=== PATIENT | female | born 1990 | race Caucasian/White ===

== ENCOUNTER 2018-08-17 13:59 | Inpatient (IN) | payer SELFPAY ==
[~2018-08-17] VITALS: Ht 160 cm; Wt 69.0 kg
[2018-08-17] MEDS ORDERED: MECLIZINE CHEWABLE 25 MG TAB ONE (14:20)
[2018-08-17] MEDS ORDERED: MECLIZINE CHEWABLE 25 MG TAB PO ONE (14:30)
[2018-08-17 14:51] LABS: BASOPHILS # (AUTO) 0.02 x10^3/uL (0-0.1); BASOPHILS % (AUTO) 0 % (0-1); EOSINOPHILS # (AUTO) 0.09 x10^3/uL (0-0.4); EOSINOPHILS % (AUTO) 1 % (1-7); LYMPHOCYTES # (AUTO) 1.82 x10^3/uL (1-3.4); LYMPHOCYTES % (AUTO) 15 % (22-44); MD NO; MEAN CORPUSCULAR HEMOGLOBIN 31.4 pg (27.0-34.8); MEAN CORPUSCULAR HGB CONC 32.7 g/dL (32.4-35.8); MEAN CORPUSCULAR VOLUME 95.8 fL (80-100); MEAN PLATELET VOLUME 8.1 fL (7.4-10.4); MONOCYTES # (AUTO) 0.49 x10^3/uL (0.2-0.8); MONOCYTES % (AUTO) 4 % (2-9); NEUTROPHILS # (AUTO) 9.93 x10^3/uL (1.8-6.8); NEUTROPHILS % (AUTO) 80 % (42-75); PLATELET COUNT 279 x10^3/uL (130-400); RED BLOOD COUNT 4.61 x10^6/uL (3.82-5.3)
[2018-08-17 14:58] LABS: ALBUMIN 3.9 g/dL (3.4-5.0); ANION GAP 6 mmol/L (5-15); CALCIUM 8.1 mg/dL (8.5-10.1); CHLORIDE 109 mmol/L (98-107); CREATININE 0.69 mg/dL (0.55-1.02)
[2018-08-17] MEDS ORDERED: ONDANSETRON 2MG/ML, 2ML IVPush ONE (15:30)
[2018-08-17] MEDS ORDERED: ONDANSETRON 2MG/ML, 2ML ONE (15:43)
--- NOTE | 2018-08-17 15:51 | NUR ---
[facility] [phone] Donny Felton
[2018-08-17] MEDS ORDERED: SODIUM CHLORIDE 0.9% 1,000ML IVBOLUS ONE (16:00)
[2018-08-17] MEDS ORDERED: PROMETHAZINE 25 MG/ML, 1ML ONE (16:20)
[2018-08-17] MEDS ORDERED: PROMETHAZINE 25 MG/ML, 1ML IM ONE (16:30)
--- NOTE | 2018-08-17 16:47 | NUR ---
PER FRIENDS PT WAS OUT DRINKING WITH THEM TILL LATE. FRIENDS STATE THEY ALL DRANK QUITE A BIT.
--- NOTE | 2018-08-17 16:48 | NUR ---
MD IN ROOM. PT REFUSING TO ANSWER MD QUESTIONS. PT STATES SHE WANTS TO STAY IN THE HOSPITAL. WILL NOT PROVIDE FURTHER DETAILS ON HOW SHE IS FEELING OR WHAT IS GOING ON WITH HER.
[2018-08-17 16:50] LABS: HCG UR SG 1.015 (1.003-1.030); MICROSCOPIC NOT IND
--- NOTE | 2018-08-17 16:54 | NUR ---
PT IS RESTING IN BED AT THIS TIME. RESPS EVEN AND UNLABORED, O2 AND NIBP MONITORING IN PLACE.
[2018-08-17 16:59] LABS: CULTURE INDICATED? NO
[2018-08-17] MEDS ORDERED: SODIUM CHLORIDE FLUSH 10ML SYR IVF ONE (17:00)
[2018-08-17] MEDS ORDERED: LABETALOL 5MG/ML, 20ML IVPush PRN (17:30)
[2018-08-17] MEDS ORDERED: ONDANSETRON 2MG/ML, 2ML IVPush PRN (17:30)
[2018-08-17] MEDS ORDERED: PROMETHAZINE 25 MG/ML, 1ML IM PRN (17:30)
[2018-08-17] MEDS ORDERED: ACETAMINOPHEN 325 MG TABLET PO PRN (17:30)
[2018-08-17] MEDS ORDERED: ENOXAPARIN 40 MG/0.4 ML SQ SCH (17:30)
[2018-08-17 17:56] LABS: THYROID STIMULATING HORMONE 0.903 mIU/L (0.358-3.740)
--- NOTE | 2018-08-17 18:08 | NUR ---
pt resting comfortably at this time.
--- NOTE | 2018-08-17 18:37 | NUR ---
PT UP TO RESTROOM. AMBULATES WITH STANDBY ASSIST.
[2018-08-17 19:47] LABS: BARBITURATE SCREEN, URINE Negative (Negative)
[2018-08-17 19:48] LABS: AMPHETAMINE SCREEN, URINE Negative (Negative); BENZODIAZEPINE SCREEN, URINE Negative (Negative); CANNABINOID SCREEN, URINE Negative (Negative); COCAINE SCREEN, URINE Negative (Negative); METHADONE SCREEN, URINE Negative (Negative); OPIATE SCREEN, URINE Negative (Negative)
[2018-08-17 20:01] VITALS: BP 132/88
[2018-08-17] MEDS: CALCIUM CARBONATE 500 MG TAB.CHEW PO SCH (21:00)
[2018-08-17] MEDS: SODIUM CHLORIDE 0.9% 1,000 ML IV SCH (22:42)
[2018-08-18 02:24] VITALS: BP 141/89
[2018-08-18 05:29] LABS: BASOPHILS # (AUTO) 0.05 x10^3/uL (0-0.1); BASOPHILS % (AUTO) 0 % (0-1); EOSINOPHILS # (AUTO) 0.03 x10^3/uL (0-0.4); EOSINOPHILS % (AUTO) 0 % (1-7); LYMPHOCYTES # (AUTO) 2.64 x10^3/uL (1-3.4); LYMPHOCYTES % (AUTO) 21 % (22-44); MD NO; MEAN CORPUSCULAR HEMOGLOBIN 31.5 pg (27.0-34.8); MEAN CORPUSCULAR HGB CONC 33.3 g/dL (32.4-35.8); MEAN CORPUSCULAR VOLUME 94.4 fL (80-100); MEAN PLATELET VOLUME 8.5 fL (7.4-10.4); MONOCYTES # (AUTO) 0.65 x10^3/uL (0.2-0.8); MONOCYTES % (AUTO) 5 % (2-9); NEUTROPHILS # (AUTO) 9.27 x10^3/uL (1.8-6.8); NEUTROPHILS % (AUTO) 73 % (42-75); PLATELET COUNT 294 x10^3/uL (130-400); RED BLOOD COUNT 4.33 x10^6/uL (3.82-5.3)
[2018-08-18 05:30] LABS: CHLORIDE 111 mmol/L (98-107)
[2018-08-18 05:35] LABS: ALANINE AMINOTRANSFERASE 13 U/L (12-78); ALBUMIN 3.2 g/dL (3.4-5.0); ALKALINE PHOSPHATASE 78 U/L (45-117); ANION GAP 7 mmol/L (5-15); BILIRUBIN,TOTAL 0.8 mg/dL (0.2-1.0); CALCIUM 7.7 mg/dL (8.5-10.1); CREATININE 0.51 mg/dL (0.55-1.02); TOTAL PROTEIN 6.5 g/dL (6.4-8.2)
[2018-08-18] MEDS: SODIUM CHLORIDE 0.9% 1,000 ML IV SCH (06:38)
[2018-08-18 07:43] VITALS: BP 125/89
[2018-08-18 07:45] VITALS: BP 133/92
[2018-08-18] MEDS ORDERED: POTASSIUM CHLORIDE 20 MEQ TAB.ER.PRT PO ONE (08:00)
[2018-08-18] MEDS: CALCIUM CARBONATE 500 MG TAB.CHEW PO SCH (09:00)
[2018-08-18] MEDS ORDERED: MECLIZINE 12.5 MG TABLET PO SCH (11:00)
== END 2018-08-18 13:01 | disposition left against medical advice (07) | DRG 149 ==
LOC: ED 15:23 → EDIP 17:24 → 4WST 19:39
PROVIDERS: ADMIT Family Medicine; ATTEND Family Medicine
DX: H81.10 Benign paroxysmal vertigo, unspecified ear (principal); D72.829 Elevated white blood cell count, unspecified; E83.51 Hypocalcemia; Z53.21 Procedure and treatment not carried out due to patient leaving prior to being seen by health care provider
CPT/HCPCS: 36415; 70450; 71045; 80048; 80053; 80307; 81003; 81025; 82040; 82607; 83735; 84100; 84443; 85025; 93005; 99285; G0378; J2405; J2550; J7030